=== PATIENT | male | born 1940 | race Caucasian/White ===

== ENCOUNTER 2016-12-27 08:17 | Day surgery (SDC) | payer MEDICARE, MEDICAID ==
[~2016-12-27] VITALS: Ht 182.9 cm
[~2016-12-27 08:17] MED LIST: AMOXICILLIN875 MG PO; BIAXIN500 MG PO; CALTRATE-600 W600 MG PO; CIPRO DPS500 MG PO; FEOSOL-DPS325 MG PO; GLUCOPHAGE-DPS500 MG PO; MICRO-K DPS10 MEQ PO; MYCOSTATIN PWD15 GM TP; NORVASC DPS10 MG PO; PROTONIX40 MG PO; VASOTEC DPS20 MG PO; VITAMIN B-12500 MCG PO; XARELTO20 MG PO; ZOCOR DPS20 MG PO
--- NOTE | 2017-01-02 08:55 | OR ---
ADMIT: 12/27/2016 RM/LOC: [facility] MR#: [id number] [address] [address] [place] [address] Operative/Delivery Room Report SEX: M AGE: 76 : 1940 SURGERY DATE: 12/27/2016 SURGEON: Andrew Kenney MD PREPROCEDURE DIAGNOSES: 1. Anemia. 2. Heme-positive stools. POSTPROCEDURE DIAGNOSES: 1. Large, low-lying rectal polyp. 2. Hepatic flexure mass. PROCEDURE: Colonoscopy with hepatic flexure mass biopsies and tattooing and hot snare polypectomy of rectal polyp. FINDINGS: The patient taken to the endoscopy suite. IV sedation was given. He was placed in left lateral decubitus position. Colonoscope was introduced into the rectum and advanced to the hepatic flexure. At the hepatic flexure, there was a near obstructing large colon mass that was biopsied and tattooed distally with blue dye Submucosally. There were no further masses or polyps. There was no diverticular disease, until within the rectum about 3 cm from anal verge, there was a large, 2 cm rectal polyp, removed with snare and electrocautery and retrieved, sent for permanent sectioning. The patient tolerated the procedure without difficulty and transferred to the recovery room in good condition. Andrew Kenney MD/ carolina JOB #: [id number] CC: Andrew Kenney, Attending Physician Sujata Juan, Family Physician
[2017-02-02] MEDS ORDERED: BACLOFEN10 MG PO (07:49)
[2017-02-02] MEDS ORDERED: KENALOG LOTION60 M1 TP (07:50)
[2017-02-02] MEDS ORDERED: TYLENOL DPS325 MG PO (07:50)
== END 2016-12-27 13:00 | disposition home or self-care (01) ==
LOC: SSS 08:17
PROC: 0DBK8ZX Excision of Ascending Colon, Via Natural or Artificial Opening Endoscopic, Diagnostic (ICD-10-PCS; principal; 2016-12-27)
PROC: 0DBP8ZX Excision of Rectum, Via Natural or Artificial Opening Endoscopic, Diagnostic (ICD-10-PCS; principal; 2016-12-27)
PROC: 3E0H8GC Introduction of Other Therapeutic Substance into Lower GI, Via Natural or Artificial Opening Endoscopic (ICD-10-PCS; principal; 2016-12-27)
DX: C18.3 Malignant neoplasm of hepatic flexure (principal); D12.8 Benign neoplasm of rectum; I10 Essential (primary) hypertension; E11.9 Type 2 diabetes mellitus without complications; G11.4 Hereditary spastic paraplegia; D59.9 Acquired hemolytic anemia, unspecified; F70 Mild intellectual disabilities; Z98.890 Other specified postprocedural states; Z79.899 Other long term (current) drug therapy

== ENCOUNTER 2017-01-20 08:42 | Inpatient (IN) | payer MEDICARE, MEDICAID ==
[~2017-01-20] VITALS: Ht 182.9 cm; Wt 83.2 kg
--- NOTE | 2017-01-26 13:47 | CO ---
ADMIT: 01/20/2017 RM/LOC: [address] [facility] MR#: [id number] [address] [address] [place] [address] Consultation SEX: M AGE: 76 : 1940 DATE OF CONSULTATION: 01/26/2017 ATTENDING PHYSICIAN: Andrew Kenney CONSULTING PHYSICIAN: Karen Sorensen APRN TIME IN: 1115 hours TIME OUT: 1150 hours. REASON FOR CONSULTATION: Supportive care consultation was requested by Dr. Juan for discussion of goals for care. HISTORY OF PRESENT ILLNESS: Mr. Velazquez is a delightful 76-year-old, male, who has a history of intellectual disabilities. He has also had a history of ongoing anemia, therefore, he underwent colonoscopy that unfortunately revealed a large near obstructing right hepatic flexure mass. It is of note that he was hospitalized in August of 2016 with an upper GI bleed and was evaluated with an EGD at that time. He was admitted on 01/26 for plans for a laparoscopic right hemicolectomy. Pathology from his surgery has revealed an adenocarcinoma. He did have a CT of the chest that shows a left upper lobe mass concerning for malignancy. It is of note that he also had a mass on the liver, which was most consistent with a benign hemangioma, however they did recommend followup imaging due to his risk for malignancy. The plan is for Oncology to evaluate the patient today and to discuss with the patient's healthcare tdywg-mq-uncrtipf the patient's overall status as well as treatment options and prognosis. Due to the patient's complexities, supportive care consultation was requested to discuss goals for care. At the time of assessment, the patient is initially a full code. The patient does have a healthcare awbxt-ky-sqfiohce, named Jesus Celestin, whose phone# [phone]. I do not see any other advanced directives on the patient's file. Symptomatically, the patient is comfortable. He was having issues with nausea, however, he states that this is better. He is very weak and debilitated. PAST MEDICAL HISTORY: 1. Intellectual disability. 2. Hypertension. 3. hereditary spastic paraplegia. 4. Prostatic hypertrophy. 5. Chronic ulceration of the foot. 6. Type 2 diabetes mellitus. 7. Allergic rhinitis. 8. Hypercholesterolemia. 9. Peripheral neuropathy. 10.GI bleed. ADMIT: 01/20/2017 RM/LOC: [address] [facility] MR#: [id number] [address] [address] [place] [address] Consultation SEX: M AGE: 76 : 1940 ALLERGIES: THE PATIENT HAS NO KNOWN MEDICATION ALLERGIES. CURRENT MEDICATIONS: Please see the patient's MAR for specific routes and dosages. His current medications are as follows. 1. Morphine. 2. Zofran. 3. Normal saline. 4. Maalox. 5. Tylenol. 6. Colace. 7. Vasotec. 8. Norvasc. 9. Lioresal. 10.Lovenox. 11.Pepcid. 12.Phenergan. 13.Compazine. 14.Entereg. SOCIAL HISTORY: The patient is single. He has been living at [facility] for at least the past month. He does not drink alcohol, use tobacco, or illicit drugs. FAMILY HISTORY: Difficult to obtain, but in discussion with the patient's healthcare ohuck-cp-htrkozmu it sounds like he has a sister who lives at a nursing facility with similar intellectual disabilities. FUNCTIONAL REVIEW: Prior to his hospital stay, he was at [facility]. He was a wheelchair-bound for the most part. He was requiring considerable assistance with ADLs. He was eating well per his larzm-ih-shhlkovg's description, and he had his baseline cognitive function. His palliative performance scale prior to admission was around 50%. Currently, he is mostly in bed or the chair. He is requiring mainly assistance. His intake is reduced. He is tired. His current palliative performance scale is 40% to 50%. REVIEW OF SYSTEMS: A 10-point review of systems was completed and other than those pertinent positives and negatives mentioned the HPI, it is negative. His review of systems is limited given his intellectual disability. PHYSICAL EXAMINATION: GENERAL: The patient is examined in the chair. He is in no acute distress. VITAL SIGNS: Temperature 98.2, pulse 84, respirations 18, blood pressure 118/41, oxygen 91% on room air. HEENT: Head is normocephalic. Pupils are equal, round, and reactive with a diameter of 4 mm bilaterally. Oral mucosa pink and moist with fair dentition. NECK: Supple. ADMIT: 01/20/2017 RM/LOC: [address] [facility] MR#: [id number] [address] [place] [id number] [place] [address] Consultation SEX: M AGE: 76 : 1940 RESPIRATORY: Respirations are equal and nonlabored at rest. LUNGS: Diminished in the bases bilaterally. CARDIOVASCULAR: Rate and rhythm regular without murmurs, rubs, or gallops. He does have 1+ bilateral lower extremity edema noted. GASTROINTESTINAL: Abdomen is distended. He has a dressing over the abdomen in the midline that does have serous drainage noted. MUSCULOSKELETAL: Generalized weakness. No obvious joint deformities. INTEGUMENTARY: Skin turgor is fair. NEUROLOGIC: He is alert. He will follow simple commands. He states that he is in the hospital, but tells me the year is 1976. PSYCHIATRIC: Calm and cooperative. DIAGNOSTIC DATA: Sodium 139, potassium 3.7, BUN is 12, creatinine 0.5, total protein 5.2, albumin 1.9. WBC is 9.2, hemoglobin 8.8, hematocrit 30.2, and platelets are 241. IMPRESSION: 1. Physical debility. 2. Intellectual disability. 3. Fatigue. 4. Malaise. 5. Severe protein-calorie malnutrition. 6. Colon cancer. 7. Left upper lobe mass. 8. Diabetes mellitus type 2. 9. Palliative care. 10.The patient is a DNR/DNI. PLAN OF TREATMENT: 1. At the time of assessment, the patient is not able to participate in medical decision making due to his baseline cognitive function. I do call the healthcare xoejw-fu-qqijzahqJesus via telephone. She has been updated regarding the patient's status by Dr. Juan earlier this morning. At this time, she is awaiting Oncology input in terms of prognosis and treatment options. She states that quality of life is of the utmost importance when she makes decisions for Grady in the time ahead. She does report that he has been declining even prior to this ADMIT: 01/20/2017 RM/LOC: [address] [facility] MR#: [id number] [address] [place] [id number] [place] [address] Consultation SEX: M AGE: 76 : 1940 hospital stay. She does agree to ongoing discussions with supportive care pending his status in the time ahead. 2. We did review code status and the patient's llzfz-hq-kqroweqv directs a do not resuscitate/do not intubate status and this order has been written on the chart. We would like to thank Dr. Juan for the invitation to participate in this patient's care. Total consultation time was 35 minutes from 1115 hour to 1150 hours with 15 minutes from 1120 hours to 1135 hours spent skns-un-dhwo with the patient or on the phone with his mojeb-eg-bjrqitxw discussing goals for care and providing counseling and support. The plan of care was discussed with nursing and we will continue to follow along in the care of this very pleasant patient. Karen Sorensen APRN/ carolina JOB #: [id number] CC: Andrew Kenney, Attending Physician Sujata Juan, Family Physician
[2017-02-02] MEDS ORDERED: BACLOFEN10 MG PO (07:49)
[2017-02-02] MEDS ORDERED: KENALOG LOTION60 M1 TP (07:50)
[2017-02-02] MEDS ORDERED: TYLENOL DPS325 MG PO (07:50)
--- NOTE | 2017-02-03 10:18 | OR ---
ADMIT: 01/20/2017 RM/LOC: 512 [facility] MR#: [id number] [address] [address] [place] [address] Operative/Delivery Room Report SEX: M AGE: 76 : 1940 SURGERY DATE: 01/20/2017 SURGEON: Andrew Kenney MD STACKER DRIVER: NASIM Ba PRE-PROCEDURE DIAGNOSIS: Hepatic flexure colon cancer. POSTPROCEDURE DIAGNOSIS: Hepatic flexure colon cancer. PROCEDURE: Laparoscopic right hemicolectomy. INDICATIONS: The patient is a 76-year-old who presented with anemia, found on colonoscopy to have a large near obstructing right hepatic flexure colon cancer, presents for laparoscopic versus open removal. DESCRIPTION OF PROCEDURE: The patient was taken to the operative room. General endotracheal anesthesia was induced. The patient's abdomen was prepped and draped in normal sterile fashion. The case was begun by making a vertical supraumbilical 5 mm skin incision using #11 blade. A retractable 5 mm port was placed within the abdomen. The abdomen was insufflated with CO2 to an intraabdominal pressure of 15 mmHg. A camera was placed showing no bowel or vascular injury. A midepigastric 5 mm port, an infraumbilical 5 mm port, and a left lower quadrant 12 mm port was placed under direct vision. Due to the patient's contractures of his legs, dissection was somewhat difficult as his legs were kind of in a beach chair type of position. We were able to lift up the ileocecal area and mobilize the cecum from the retroperitoneum using Harmonic scalpel dissection. We continued this dissection along the white line of Toldt using Harmonic scalpel dissection towards the hepatic flexure. We then identified the transverse colon, got into the lesser sac peeling the omentum cephalad and again mobilizing towards the hepatic flexure all the colon medially until we completely and fully mobilized the right colon off the retroperitoneum. I then lifted the cecum cephalad and identified the takeoff of the ileal colic artery, scored the visceral peritoneum using Harmonic scalpel and divided the takeoff of the ileocolic artery with an Endo-JOSE 45, 2.5 mm stapler. We took down some other attachments but at this point in time, we had a nice freely mobile right colon, we could then convert to a mini-laparotomy where we combined our epigastric and supraumbilical incision in a vertical fashion making about a 6 cm length incision as this was a large tumor. Continued this dissection down through subcutaneous fat and fascia and peritoneum using electrocautery. I placed a wound protector within the abdomen, was able to eviscerate the entire right colon into our wound, took down the remainder of the right takeoff of the middle colic artery between clamps and 0 Vicryl ties, and continued this dissection with clamps and ties until we were about the mid transverse area of the colon. Then, we took down the small bowel mesentery between clamps and 0 Vicryl ties to remove about 10 cm of the distal ileum. I then created enterotomies on the ileum and transverse colon, created a qdpa-hq-tpvx stapled anastomosis with a 75 JOSE stapler, identified the mucosal side of the staple ADMIT: 01/20/2017 RM/LOC: 512 [facility] MR#: [id number] [address] [place] [phone] [place] [address] Operative/Delivery Room Report SEX: M AGE: 76 : 1940 line showing no bleeding and then closed the common enterotomy staple line with 2 firings of 75 JOSE stapler. Specimen was sent off the operative field. I reinforced the apex of the staple line using two interrupted 3-0 silk seromuscular sutures and over sewed the common enterotomy staple line with running 3-0 silk seromuscular sutures imbricating the entire staple line. There was no bleeding. There was a nice palpable and visible blood supply to the anastomosis. It was replaced back into the intra-abdominal space. We closed the midline, removed the wound protector, closed the fascia with running #1 single stranded PDS suture, re-insufflated the intra-abdominal space. There was no evidence of any intraabdominal bleeding. Really nothing to irrigate. Our closure appeared intact. I then closed the left lower quadrant 12 mm port site with a wiicax-sf-ehnra 0 Polysorb suture passer. The air was desufflated. The port sites were removed. The skin sites were closed with interrupted skin radha. Wounds were cleaned and dried and dressed. The patient tolerated the procedure without difficulty and transferred to the recovery room in good condition. Andrew Kenney MD/ carolina JOB #: [id number] CC: Andrew Kenney, Attending Physician Sujata Juan, Family Physician
--- NOTE | 2017-02-21 11:05 | CO ---
ADMIT: 01/20/2017 RM/LOC: 512 [facility] MR#: [id number] [address] [address] [place] [address] Consultation SEX: M AGE: 76 : 1940 DATE OF CONSULTATION: 01/26/2017 ATTENDING PHYSICIAN: Andrew Kenney CONSULTING PHYSICIAN: Pepito Paritda MD ONCOLOGY/HEMATOLOGY HISTORY: This is a pleasant, 76-year-old, gentleman with the recent diagnosis of colon cancer. This is seen in the inpatient consult. The patient has been seen for vomiting and then having black stools, and he has prior mental retardation. He is being evaluated and found to have anemia and the iron-deficiency. Upper endoscopy and lower endoscopy have been done revealing a hepatic flexure mass on colonoscopy, nothing on the upper endoscopy. A biopsy of the near obstructing large colon mass at the hepatic flexure has come back as adenocarcinoma. The patient then undergone a hepatic flexure laparoscopic right hemicolectomy, January 20. Pathology reports invasive adenocarcinoma moderately differentiated, greatest dimension 6.4, microscopic tumor extension invading through the muscularis propria into the subserosal adipose tissue. Tumor staged as T3 N0 M0. Twenty- nine lymph nodes negative. He has had abnormal CAT scan showing a liver mass which is consistent with a hemangioma, but the CT of the chest done because of an abnormal chest x-ray reveals a 4.2 cm left upper lobe mass in the lung along the fissure and Oncology consult requested. The patient does have a history of mild mental retardation. PAST MEDICAL HISTORY: Mental retardation, type 2 diabetes, hereditary spastic paraplegia, hypertension, allergic rhinitis, history of leg blood clot, and has been on Coumadin. SOCIAL HISTORY: He lives at home alone, not a smoker, mentally retarded and disabled. MEDICATIONS: 1. Enalapril. 2. Coumadin. 3. Metformin. 4. Zocor. FAMILY HISTORY: Hereditary spastic paraplegia with numerous family members who have had problems with the gait. REVIEW OF SYSTEMS: The patient can answer the questions but not very cooperative. Denies any nausea, vomiting, diarrhea. No night sweats, fevers, chills. No blood in the urine. No aches or pains. PHYSICAL EXAMINATION: VITAL SIGNS: Temperature 98, blood pressure 110/70, pulse rate 88, respirations 20. HEAD, EARS, EYES, NOSE, THROAT EXAM: Normocephalic, atraumatic. Extraocular muscles intact. NECK: Supple. No JVD. No lymph nodes palpable. ADMIT: 01/20/2017 RM/LOC: 512 [facility] MR#: [id number] [address] [place] [phone] [place] [address] Consultation SEX: M AGE: 76 : 1940 CHEST: Sounds clear to auscultation and percussion. HEART: Normal S1, S2. No S3, S4. No murmurs. ABDOMEN: Soft, nontender. No organomegaly. Recent laparoscopic surgery. EXTREMITIES: No cyanosis, clubbing, or edema. LABORATORY DATA: WBC count 9.2, hemoglobin 8.8, hematocrit 30, platelets 428, MCV 74. Sodium 139, potassium 3.7, chloride 105, creatinine 0.5, total protein 5.2, albumin 1.9. ASSESSMENT AND PLAN: Mr. Velazquez is a pleasant, 76-year-old, gentleman with the recent diagnosis of T3 N0 M0 colon cancer. There is an incidental finding in the chest x-ray, followed by CAT scan, left upper lobe mass. This could be metastatic colon, but it could be also second primary tumor too. Given that his tumor was T3 N0, there is a possibility this could be another primary. I spoke to lrvjp-gp-igqnzxbu, explained that regardless of what we do, it would help to understand what prognosis, so a CT-guided biopsy of this lesion would be very helpful. I will also check his MLH1 and MSH6 for Rodriguez syndrome, which now we are doing and also Rodriguez screening in our hospital that would be helpful for the family members. I will also make a decision about adjuvant chemotherapy versus not after we explore what is in the lung. His liver lesion seems to be a hemangioma, and at this point, I would not want to biopsy it, but I will go after the lung lesion to biopsy. Then, I will see him outpatient. I went over about the prognosis, expectations, side effects, treatment options. All of the questions were answered. This encounter took 60 minutes, 35 minutes was azcf-vd-oxes. Pepito Partida MD/ carolina JOB #: [id number] CC: Andrew Kenney, Attending Physician Sujata Juan, Family Physician
--- NOTE | 2017-03-13 08:57 | DS ---
ADMIT: 01/20/2017 RM/LOC: 512 [facility] MR#: [id number] [address] [address] [place] [address] Discharge Summary SEX: M AGE: 76 : 1940 ADMISSION DATE: 01/20/2017 DISCHARGE DATE: 01/31/2017 ADMITTING DIAGNOSIS: Hepatic flexure colon cancer. DISMISSAL DIAGNOSES: 1. Invasive adenocarcinoma of the right colon PT3 with nonmetastatic disease. 2. Anemia. 3. Paraplegia. 4. Intellectual disability. 5. Type 2 diabetes. PROCEDURES: Laparoscopic right hemicolectomy. HOSPITAL COURSE: The patient was an inpatient admit with routine med/surg orders. After surgery, the patient transferred to the floor without any complications and was started on clears. He was given a morphine HIDE EXAMINER for pain control. The patient initially started feeling good after surgery but unfortunately had a run of nausea with emesis on postop day #3. Therefore, he was n.p.o. and an NG was placed. He no longer felt nauseous after the NG was placed, but his p.o. was not substantial. Therefore, a PICC line was placed, and the patient was started on TPN. While his hospital stay, a chest CT was performed which revealed upper lobe masses. This was going to be followed up as an outpatient basis. The patient started to recover well. He was tolerating an advanced diet. His pain was controlled, and he had return of good bowel function. He was weaned off his HIDE EXAMINER and was tolerating oral pain medications. Vitals and laboratory data began to normalize. He continued to recover well and was able to discharge back to [facility] on 01/31/2017. TPN and lipids were discontinued prior to discharge. DISCHARGE INSTRUCTIONS: 1. Follow up with Dr. Kenney in 1 week. 2. Follow up with Dr. Juan on MondayMarch 07. 3. Follow a regular diet. 4. Follow up with Dr. Partida in 6 weeks. DISCHARGE MEDICATION LIST: ADMIT: 01/20/2017 RM/LOC: 512 [facility] MR#: [id number] [address] [address] [place] [address] Discharge Summary SEX: M AGE: 76 : 1940 1. Baclofen 5 mg b.i.d. 2. Ferrous sulfate 325 mg b.i.d. 3. Caltrate with vitamin D daily. 4. Glucophage 500 mg b.i.d. 5. Micro-K 10 mEq daily. 6. Norvasc 10 mg daily. 7. Nystatin powder as directed. 8. Protonix 40 mg b.i.d. 9. Triamcinolone 0.1% cream b.i.d. 10.Tylenol 650 mg q.4h p.r.n. 11.Vasotec 20 mg daily. 12.Vitamin B12 500 mcg daily. NASIM Ba / Andrew Kenney MD / davie JOB #: [id number] CC: Andrew Kenney MD, Attending Physician Sujata Juan MD, Family Physician
== END 2017-01-31 10:40 | DRG 329 ==
LOC: 5MS 08:42 → WOR 08:42 → 5MS 14:40
PROVIDERS: ADMIT Surgery
PROC: 0DTF4ZZ Resection of Right Large Intestine, Percutaneous Endoscopic Approach (ICD-10-PCS; principal; 2017-01-20)
PROC: 3E0436Z Introduction of Nutritional Substance into Central Vein, Percutaneous Approach (ICD-10-PCS; 2017-01-27)
PROC: 02HV33Z Insertion of Infusion Device into Superior Vena Cava, Percutaneous Approach (ICD-10-PCS; 2017-01-27)
DX: C18.3 Malignant neoplasm of hepatic flexure (principal); E43 Unspecified severe protein-calorie malnutrition; G11.4 Hereditary spastic paraplegia; E11.621 Type 2 diabetes mellitus with foot ulcer; E11.42 Type 2 diabetes mellitus with diabetic polyneuropathy; F03.90 Unspecified dementia, unspecified severity, without behavioral disturbance, psychotic disturbance, mood disturbance, and anxiety; D59.9 Acquired hemolytic anemia, unspecified; K91.3 Postprocedural intestinal obstruction; L97.509 Non-pressure chronic ulcer of other part of unspecified foot with unspecified severity; E87.6 Hypokalemia; K20.9 Esophagitis, unspecified; F70 Mild intellectual disabilities; R91.8 Other nonspecific abnormal finding of lung field; I10 Essential (primary) hypertension; D18.09 Hemangioma of other sites; N40.0 Benign prostatic hyperplasia without lower urinary tract symptoms; J30.9 Allergic rhinitis, unspecified; E78.00 Pure hypercholesterolemia, unspecified; Z66 Do not resuscitate; Z86.718 Personal history of other venous thrombosis and embolism; Z79.01 Long term (current) use of anticoagulants; Z79.84 Long term (current) use of oral hypoglycemic drugs; Z99.3 Dependence on wheelchair